=== PATIENT | male | born 1960 | race Caucasian/White ===

== ENCOUNTER 2021-08-23 07:38 | Emergency (ER) | payer BC, OTHER ==
[2021-08-23] MEDS ORDERED: Aspirin 81 MG Tab.Chew PO ONE (07:53)
[2021-08-23] MEDS ORDERED: Clopidogrel 75 MG Tab PO ONE (07:53)
[2021-08-23] MEDS ORDERED: Iopamidol 755 MG/ML 500 ML Multipack Bottle IVPUSH STA (07:54)
[2021-08-23 08:16] LABS: BLOOD UREA NITROGEN,BUN 21 mg/dL (7.0-18.0); CHLORIDE,CL 106 mmol/L (98-107); GLUCOSE RANDOM 118 mg/dL (74-106); POTASSIUM,K 4.2 mmol/L (3.5-5.1); SODIUM,NA 140 mmol/L (136-148)
== END 2021-08-23 09:33 ==
LOC: MW.ED 07:38
DX: I63.512 Cerebral infarction due to unspecified occlusion or stenosis of left middle cerebral artery (principal); Z20.822 Contact with and (suspected) exposure to COVID-19
CPT/HCPCS: 36415; 70450; 70496; 70498; 80053; 83735; 84484; 85025; 85610; 85730; 87635; 93005; 99285; A9270; Q9967; 93010; 99284; U0002

== ENCOUNTER 2021-11-04 04:08 | Emergency (ER) | payer OTHER ==
[2021-11-04] MEDS ORDERED: EPINEPHrine 1 MG/ML SDV ONE (04:31)
[2021-11-04] MEDS ORDERED: Famotidine 20 MG Tab PO ONE (04:31)
[2021-11-04] MEDS ORDERED: hydrOXYzine HCl 25 MG Tab PO ONE (04:32)
[2021-11-04] MEDS ORDERED: EPINEPHrine 1 MG/1 ML Amp IM ONE (04:32)
[2021-11-04] MEDS ORDERED: Alum Hydro/Mag Hydro/Simeth XS 15 ML, Lidocaine 2% 5 ML PO ONE ×2 (08:34)
[2021-11-04 09:28] LABS: CARBON DIOXIDE,CO2 24.3 mmol/L (21.0-32.0); POTASSIUM,K 3.4 mmol/L (3.5-5.1)
[2021-11-04] MEDS ORDERED: Benzocaine 20% Topical Spray UD MUCMEM ONE (10:18)
== END 2021-11-04 11:36 | disposition home or self-care (01) ==
LOC: MW.ED 04:08
DX: T78.3XXA Angioneurotic edema, initial encounter (principal); Z79.899 Other long term (current) drug therapy
CPT/HCPCS: 36415; 80053; 83690; 84484; 85025; 93005; 96372; 99284; A9270; J0171

== ENCOUNTER 2021-11-05 17:37 | Emergency (ER) | payer OTHER ==
[2021-11-05 20:15] LABS: CARBON DIOXIDE,CO2 23.8 mmol/L (21.0-32.0); POTASSIUM,K 3.7 mmol/L (3.5-5.1)
[2021-11-05 21:52] LABS: INFLUENZA A NAA NEGATIVE (NEGATIVE); INFLUENZA B NAA NEGATIVE (NEGATIVE)
[2021-11-05 22:47] LABS: C. TRACHOMATIS BY PCR NOT DETECTED; N. GONORRHOEAE BY PCR NOT DETECTED
== END 2021-11-05 22:50 | disposition home or self-care (01) ==
LOC: MW.ED 17:37
DX: M25.50 Pain in unspecified joint (principal); Z86.73 Personal history of transient ischemic attack (TIA), and cerebral infarction without residual deficits; Z88.8 Allergy status to other drugs, medicaments and biological substances; Z79.899 Other long term (current) drug therapy; Z20.822 Contact with and (suspected) exposure to COVID-19
CPT/HCPCS: 36415; 71045; 71045-26; 73030-26-LT; 73030-26-RT; 73030-LT; 73030-RT; 73130-26-LT; 73130-26-RT; 73130-LT; 73130-RT; 80053; 82550; 85025; 85652; 86140; 87491; 87591; 87651-QW; 99283; U0002

== ENCOUNTER 2022-04-28 10:12 | Day surgery (SDC) | payer OTHER ==
[~2022-04-28 10:12] MED LIST: Acetaminophen 1,000 MG in Premix Bag 1 BAG IV SCH; Lactated Ringers 1,000 ML IV SCH; Pregabalin 75 MG Cap PO SCH; ceFAZolin 2 GM in Premix Bag 1 BAG IV SCH
[2022-04-28] MEDS ORDERED: Dexmedetomidine 200 MCG/2 ML SDV ONE (10:47)
[2022-04-28] MEDS ORDERED: Propofol 200 MG/20 ML SDV ONE ×2 (10:47→13:22)
[2022-04-28] MEDS ORDERED: fentaNYL 100 MCG/2 ML SDV ONE (10:47)
[2022-04-28] MEDS ORDERED: Water For Injection, Sterile 20 ML ONE (10:48)
[2022-04-28] MEDS ORDERED: Rocuronium Bromide 50 MG/5 ML Syringe ONE (10:48)
[2022-04-28] MEDS ORDERED: Morphine 2 MG/ML SYRINGE IVPUSH PRN (11:05)
[2022-04-28] MEDS ORDERED: Ondansetron 4 MG/2 ML SDV IVPUSH PRN (11:05)
[2022-04-28] MEDS ORDERED: Albuterol 0.083% 2.5 MG/3 ML Neb Soln NEB PRN (11:05)
[2022-04-28] MEDS ORDERED: Metoclopramide 10 MG/2 ML SDV IVPUSH PRN (11:05)
[2022-04-28] MEDS ORDERED: fentaNYL 50 MCG/ML SDV IVPUSH PRN (11:05)
[2022-04-28] MEDS ORDERED: Naloxone 0.4 MG/ML SDV IVPUSH PRN (11:05)
[2022-04-28] MEDS ORDERED: HYDROmorphone 1 MG/ML Syringe IVPUSH PRN (11:05)
[2022-04-28] MEDS ORDERED: Bupivacaine 0.25% 30 ML SDV ONE (11:14)
[2022-04-28] MEDS ORDERED: Bupivacaine 0.5% 30 ML SDV ONE (11:31)
[2022-04-28] MEDS ORDERED: Magnesium Sulfate (4.06 MEQ/ML) 5 GM/10 ML SDV ONE (11:57)
[2022-04-28] MEDS ORDERED: ePHEDrine 50 MG/ML SDV ONE (12:00)
[2022-04-28] MEDS ORDERED: ceFAZolin 1 GM Vial ONE (12:03)
[2022-04-28] MEDS ORDERED: ceFAZolin 2 GM Vial ONE (12:03)
[2022-04-28] MEDS ORDERED: fentaNYL 250 MCG/5 ML SDV ONE (12:10)
[2022-04-28] MEDS ORDERED: Ketorolac 30 MG/ML SDV ONE (12:45)
[2022-04-28] MEDS ORDERED: Sugammadex Sodium 200 MG/2 ML VIAL ONE (12:45)
[2022-04-28] MEDS ORDERED: Ondansetron 4 MG/2 ML SDV ONE (12:45)
[2022-04-28] MEDS ORDERED: oxyCODONE 5 MG Tab PO ONE (14:49)
== END 2022-04-28 15:25 | disposition home or self-care (01) ==
LOC: MW.SDS 10:12
PROVIDERS: ATTEND Surgery
DX: K43.9 Ventral hernia without obstruction or gangrene (principal); I10 Essential (primary) hypertension; E66.01 Morbid (severe) obesity due to excess calories; J44.9 Chronic obstructive pulmonary disease, unspecified; Z68.39 Body mass index [BMI] 39.0-39.9, adult; Z98.890 Other specified postprocedural states; Z88.8 Allergy status to other drugs, medicaments and biological substances; Z79.899 Other long term (current) drug therapy; Z79.82 Long term (current) use of aspirin; Z79.01 Long term (current) use of anticoagulants; Z87.891 Personal history of nicotine dependence
CPT/HCPCS: 49591; A9270; J0690; J1885; J2405; J2704; J3010; J3475; J3490; J7120; C1781

== ENCOUNTER 2022-04-30 15:19 | Emergency (ER) | payer OTHER ==
[2022-04-30 16:14] LABS: CARBON DIOXIDE,CO2 24.2 mmol/L (21.0-32.0); POTASSIUM,K 3.7 mmol/L (3.5-5.1)
[2022-04-30 16:39] LABS: CORONAVIRUS COVID-19 NAA POSITIVE (NEGATIVE); INFLUENZA A NAA NEGATIVE (NEGATIVE); INFLUENZA B NAA NEGATIVE (NEGATIVE); RESPIRATORY SYNCYTIAL VIR NAA NEGATIVE (NEGATIVE)
[2022-04-30] MEDS ORDERED: Iopamidol 755 MG/ML 500 ML Multipack Bottle IVPUSH STA (17:13)
== END 2022-04-30 18:13 | disposition home or self-care (01) ==
LOC: MW.ED 15:19
DX: U07.1 COVID-19 (principal); J45.909 Unspecified asthma, uncomplicated; M19.90 Unspecified osteoarthritis, unspecified site; E66.9 Obesity, unspecified; Z68.38 Body mass index [BMI] 38.0-38.9, adult; Z91.048 Other nonmedicinal substance allergy status; Z88.8 Allergy status to other drugs, medicaments and biological substances; Z79.899 Other long term (current) drug therapy; Z79.82 Long term (current) use of aspirin; Z79.02 Long term (current) use of antithrombotics/antiplatelets; Z79.01 Long term (current) use of anticoagulants
CPT/HCPCS: 0241U; 36415; 74177; 80053; 81003; 85025; 99284; Q9967; 99282

== ENCOUNTER 2024-03-16 15:14 | Emergency (ER) | payer SELFPAY ==
[2024-03-16] MEDS ORDERED: Sodium Chloride 0.9% 10 ML Syringe FLUSH PRN (17:27)
[2024-03-16] MEDS ORDERED: Sodium Chloride 0.9% 2.5 ML Syringe FLUSH PRN (17:27)
[2024-03-16] MEDS: Morphine 4 MG/ML Syringe IVPUSH ONE (17:46)
[2024-03-16 17:56] LABS: BASOPHILS ABSOLUTE AUTO 0.03 K/uL (0.00-0.20); BASOPHILS PERCENT AUTO 0.2 % (0.0-1.0); EOSINOPHILS ABSOLUTE AUTO 0.21 K/uL (0.00-0.45); EOSINOPHILS PERCENT AUTO 1.6 % (0.0-6.0); HEMATOCRIT 41.7 % (42.0-52.0); HEMOGLOBIN 13.8 g/dL (14.0-18.0); IMMATURE GRAN ABSOLUTE AUTO 0.03 K/uL (0.00-0.05); IMMATURE GRAN PERCENT AUTO 0.2 % (0.0-0.4); LYMPHOCYTES ABSOLUTE AUTO 1.84 K/uL (1.00-4.80); LYMPHOCYTES PERCENT AUTO 14.3 % (24.0-44.0); MEAN CORPUSCULAR HGB CONC 33.1 g/dL (32.0-36.0); MEAN CORPUSCULAR VOLUME 84.8 fL (83.0-99.0); MEAN PLATELET VOLUME 9.1 fL (9.4-12.4); MONOCYTES ABSOLUTE AUTO 0.77 K/uL (0.00-0.80); NEUTROPHILS ABSOLUTE AUTO 10.01 K/uL (1.80-7.70); NEUTROPHILS PERCENT AUTO 77.7 % (41.0-71.0); PLATELET COUNT,PLT 217 K/uL (150-400); RED BLOOD CELL COUNT 4.92 M/uL (4.52-5.90); WHITE BLOOD CELL COUNT,WBC 12.89 K/uL (3.9-11.3)
[2024-03-16 18:16] LABS: ALBUMIN 3.6 g/dL (3.4-5.0); BILIRUBIN TOTAL 0.2 mg/dL (0.2-1.0); CALCIUM 8.6 mg/dL (8.5-10.1); CARBON DIOXIDE,CO2 24.9 mmol/L (21.0-32.0); EST CRCL DRUG DOSING (CG) 77.06 mL/min; POTASSIUM,K 3.9 mmol/L (3.5-5.1); PROTEIN TOTAL,TP 7.1 g/dL (6.4-8.2)
[2024-03-16] MEDS: Iopamidol 755 Mg/ML 100 ML Bottle IVPUSH ONE (18:52)
== END 2024-03-16 20:48 | disposition home or self-care (01) ==
LOC: MW.ED 15:14
DX: S30.0XXA Contusion of lower back and pelvis, initial encounter (principal); E66.9 Obesity, unspecified; J45.909 Unspecified asthma, uncomplicated; Z79.899 Other long term (current) drug therapy; Z79.82 Long term (current) use of aspirin; Z88.8 Allergy status to other drugs, medicaments and biological substances; Z91.048 Other nonmedicinal substance allergy status; W01.0XXA Fall on same level from slipping, tripping and stumbling without subsequent striking against object, initial encounter
CPT/HCPCS: 36415; 74177; 80053; 85025; 85610; 86850; 86900; 86901; 96374; 99284; J2270; Q9967

== ENCOUNTER 2024-12-24 22:49 | Emergency (ER) | payer BC ==
[2024-12-24] MEDS ORDERED: Sodium Chloride 0.9% 10 ML Syringe FLUSH PRN (22:54)
[2024-12-24] MEDS ORDERED: Sodium Chloride 0.9% 2.5 ML Syringe FLUSH PRN (22:54)
[2024-12-24] MEDS: Ondansetron 4 MG/2 ML SDV IVPUSH ONE (23:16)
[2024-12-24 23:21] LABS: BASOPHILS ABSOLUTE AUTO 0.02 K/uL (0.00-0.20); BASOPHILS PERCENT AUTO 0.3 % (0.0-1.0); EOSINOPHILS ABSOLUTE AUTO 0.17 K/uL (0.00-0.45); EOSINOPHILS PERCENT AUTO 2.2 % (0.0-6.0); IMMATURE GRAN ABSOLUTE AUTO 0.02 K/uL (0.00-0.05); IMMATURE GRAN PERCENT AUTO 0.3 % (0.0-0.4); LYMPHOCYTES ABSOLUTE AUTO 2.24 K/uL (1.00-4.80); LYMPHOCYTES PERCENT AUTO 28.6 % (24.0-44.0); MEAN PLATELET VOLUME 8.8 fL (9.4-12.4); MONOCYTES ABSOLUTE AUTO 0.69 K/uL (0.00-0.80); MONOCYTES PERCENT AUTO 8.8 % (0.0-8.0); NEUTROPHILS ABSOLUTE AUTO 4.69 K/uL (1.80-7.70); NEUTROPHILS PERCENT AUTO 59.8 % (41.0-71.0); NRBC ABSOLUTE 0.00 K/uL (0.00-0.02); NRBC PERCENT 0.0 /100WBC (0.0-0.2); PLATELET COUNT,PLT 259 K/uL (150-400); RED BLOOD CELL COUNT 5.01 M/uL (4.52-5.90); WHITE BLOOD CELL COUNT,WBC 7.83 K/uL (3.9-11.3)
[2024-12-24 23:41] LABS: APPEARANCE,URINE CLEAR; GLUCOSE,URINE NEGATIVE (NEGATIVE); OCCULT BLOOD,URINE NEGATIVE (NEGATIVE)
[2024-12-24 23:44] LABS: A/G RATIO 1.0 (0.9-1.6); ALANINE AMINOTRANSFERASE,ALT 23 IU/L (14-63); ASPARTATE AMNIOTRANSFERASE,AST 13 IU/L (15-37); BILIRUBIN TOTAL 0.2 mg/dL (0.2-1.0); BLOOD UREA NITROGEN,BUN 26 mg/dL (7.0-18.0); CARBON DIOXIDE,CO2 23.1 mmol/L (21.0-32.0); CHLORIDE,CL 108 mmol/L (98-107); CREATININE 1.0 mg/dL (0.8-1.3); GLUCOSE RANDOM 78 mg/dL (74-106); POTASSIUM,K 3.8 mmol/L (3.5-5.1); PROTEIN TOTAL,TP 7.1 g/dL (6.4-8.2); SODIUM,NA 142 mmol/L (136-148)
[2024-12-24 23:45] LABS: ESTIMATED GFR 84 mL/min (>60)
[2024-12-25] MEDS: Iopamidol 755 MG/ML 500 ML Multipack Bottle IVPUSH STA (00:09)
[2024-12-25] MEDS: Amoxicillin/Clavulanate K 875-125 MG Tab PO ONE (00:40)
== END 2024-12-25 00:50 | disposition home or self-care (01) ==
LOC: MW.ED 22:49
DX: K57.32 Diverticulitis of large intestine without perforation or abscess without bleeding (principal); N40.0 Benign prostatic hyperplasia without lower urinary tract symptoms; Z91.048 Other nonmedicinal substance allergy status; Z88.8 Allergy status to other drugs, medicaments and biological substances; Z79.899 Other long term (current) drug therapy; Z79.82 Long term (current) use of aspirin; Z86.73 Personal history of transient ischemic attack (TIA), and cerebral infarction without residual deficits
CPT/HCPCS: 36415; 74177; 80053; 81003; 83690; 85025; 85652; 86140; 99284; A9270; Q9967